=== PATIENT | male | born 1970 | race Caucasian/White ===

== ENCOUNTER → 2024-08-18 | Outpatient (CLI) | payer BC ==
--- NOTE | 2024-08-18 15:12 | US ---
EXAMINATION TYPE: US thyroid st tissue head/neck DATE OF EXAM: 08/18/2024 COMPARISON: NONE CLINICAL INDICATION: Male, 53 years old with history of E04.1 NONTOXIC SINGLE THYROID NODULE; TECHNIQUE: Grayscale and color Doppler imaging of the thyroid gland. FINDINGS: GLAND SIZE: Right Lobe: 4.7 x 1.9 x 2.1 cm Overall Parenchyma: homogeneous Left Lobe: 4.2 x 1.7 x 1.8 cm Overall Parenchyma: homogeneous Isthmus Thickness: 0.2 cm NODULES RIGHT: # of nodules measured on right: 1 1. 1.6 X 1.1 x 1.2 cm, mid, solid or almost completely solid, hypoechoic nodule, which is wider xin n tall, with smooth margins, without echogenic foci. TR 4 Prior size: no previous LEFT: # of nodules measured on left: 1 1. 1.2 X 0.8 x 0.9 cm, mid, solid or almost completely solid, isoechoic nodule, which is wider than tall, with ill-defined margins, without echogenic foci. TR 3 Prior size: no previous ISTHMUS: # of nodules measured in the isthmus: 0 Bilateral neck scanned, no evidence of lymphadenopathy. IMPRESSION: Moderately suspicious nodule right lobe thyroid. Fine needle aspiration can be performed. Highest TI-RADS level nodule reported: 2017 ACR TI-RADS LEVEL: TI-RADS 4 - Moderately Suspicious: Follow if > 1 cm, FNA if > 1.5 cm TI-RADS assessment score and recommendation for follow-up based on appropriate scoring and treatment protocols. TR3: If nodule size is ? 2.5 cm, FNA is recommended. If nodule size is ? 1.5 cm, follow-up imaging at 1, 3, and 5 years is recommended. TR4: If nodule size is ? 1.5 cm, FNA is recommended. If nodule size is ? 1.0 cm, follow-up imaging at 1, 2, 3, and 5 years is recommended. TR5: If nodule size is ? 1.0 cm, FNA is recommended. If nodule size is ? 0.5 cm, annual follow-up for up to 5 years is recommended. [email or web address] [facility], Workstation: [email or web address], 08/18/2024 3:10 PM
== END | disposition home or self-care (01) ==
LOC: RADUSWWP 14:37
PROVIDERS: ATTEND Family Medicine
DX: E04.2 Nontoxic multinodular goiter (principal)
CPT/HCPCS: 76536

== ENCOUNTER 2024-09-08 14:46 | Emergency (ER) | payer BC ==
--- NOTE | 2024-09-08 15:39 | ED ---
Abdominal Pain HPI - General Chief Complaint: Abdominal Pain Stated Complaint: ABD Pain/Vomiting Time Seen by Provider: 09/08/24 15:00 Source: patient, RN notes reviewed Mode of arrival: ambulatory Limitations: no limitations - History of Present Illness Initial Comments: This is a 54-year-old male presenting to the emergency department for complaints of abdominal pain with associated nausea and vomiting over the past 4 to 5 days. Patient states that he has attempted to take Prilosec over the past 2 weeks to alleviate symptoms of heartburn however symptoms have persisted with associated nausea and vomiting. he denies constipation, diarrhea, hematochezia, melena or urinary symptoms. Denies difficulty breathing, chest pain, peripheral edema, heart palpitations, dizziness or lightheadedness. Denies previous surgical abdominal history. - Related Data Allergies Allergy/AdvReac Type Severity Reaction Status Date / Time acetaminophen Allergy Unknown Verified 09/08/24 15:11 codeine AdvReac Unknown Verified 09/08/24 15:11 Review of Systems ROS Statement: Those systems with pertinent positive or pertinent negative responses have been documented in the HPI. ROS Other: All systems not noted in ROS Statement are negative. Past Medical History Past Medical History: Diabetes Mellitus, Hyperlipidemia, Hypertension Past Surgical History: Heart Catheterization, Heart Catheterization With Stent Smoking Status: Never smoker Past Alcohol Use History: None Reported Past Drug Use History: Marijuana General Exam - General Exam Comments Initial Comments: Visual Physical Exam Vital signs reviewed General: Well-appearing, nontoxic, no acute distress. Head: Normocephalic, atraumatic Eyes: PERRLA, EOMI ENT: Airway patent Chest: Nonlabored breathing Skin: No visual rash, normal skin tone Neuro: Alert and oriented 3 Musculoskeletal: No gross abnormalities Limitations: no limitations General appearance: alert, in no apparent distress Respiratory exam: Present: normal lung sounds bilaterally. Absent: respiratory distress, wheezes, rales, rhonchi, stridor Cardiovascular Exam: Present: regular rate, normal rhythm, normal heart sounds. Absent: systolic murmur, diastolic murmur, rubs, gallop, clicks GI/Abdominal exam: Present: soft, tenderness (RUQ, epigastric), normal bowel sounds. Absent: distended, guarding, rebound, rigid Extremities exam: Present: normal inspection, full ROM, normal capillary refill. Absent: tenderness, pedal edema, joint swelling, calf tenderness Back exam: Present: normal inspection. Absent: CVA tenderness (R), CVA tenderness (L) Skin exam: Present: warm, dry, intact, normal color. Absent: rash Course Vital Signs 09/08/24 15:08 Temperature 98.1 F Pulse Rate 86 Respiratory 18 Rate Blood Pressure 119/77 O2 Sat by Pulse 99 Oximetry Medical Decision Making - Medical Decision Making Was pt. sent in by a medical professional or institution (, PA, GEOSPATIAL ENGINEER, urgent c are, hospital, or correction...) When possible be specific @ -No Did you speak to anyone other than the patient for history (EMS, parent, family, police, friend...)? What history was obtained from this source @ -No Did you review nursing and triage notes (agree or disagree)? Why? @ -I reviewed and agree with nursing and triage notes Were old charts reviewed (outside hosp., previous admission, EMS record, old EKG, old radiological studies, urgent care reports/EKG's, correction records)? Report findings @ -No old charts were reviewed Differential Diagnosis (chest pain, altered mental status, abdominal pain women, abdominal pain men, vaginal bleeding, weakness, fever, dyspnea, syncope, h eadache, dizziness, GI bleed, back pain, seizure, CVA, palpatations, mental health, musculoskeletal)? @ -Differential Abdominal Pain Men: Appendicitis, cholecystitis, diverticulosis, ischemic bowel, pancreatitis, hepatitis, UTI, gastroenteritis, AAA, incarcerated hernia, bowel obstruction, constipation, inflammatory bowel, hepatitis, peptic ulcer disease, splenic infarction, perforated viscus, testicular torsion, this is not meant to be an all-inclusive list EKG interpreted by me (3pts min.). @ -None X-rays interpreted by me (1pt min.). @ -None done CT interpreted by me (1pt min.). @ -CT of the abdomen pelvis with IV contrast reveals choledocholithiasis with upstream dilation of the extrahepatic and central intrahepatic biliary system with recommended ERCP U/S interpreted by me (1pt. min.). @ -Ultrasound of the gallbladder reveals a dilated common bile duct with inability to visualize stone visualized on CT scan due to overlying bowel gas What testing was considered but not performed or refused? (CT, X-rays, U/S, labs)? Why? @ -None What meds were considered but not given or refused? Why? @ -None Did you discuss the management of the patient with other professionals (professionals i.e. DrElijah, PA, GEOSPATIAL ENGINEER, lab, RT, psych nurse, social worker clinical, informatics educator, teacher, chief risk officer, catalytic case operator)? Give summary @ -i spoke with GI specialist, Dr. Moreno, with [facility], who has agreed to transfer the patient for gallstone pancreatitis intervention. Was smoking cessation discussed for >3mins.? @ -No Was critical care preformed (if so, how long)? @ -No Were there social determinants of health that impacted care today? How? (Homelessness, low income, unemployed, alcoholism, drug addiction, transportation, low edu. Level, literacy, decrease access to med. care, nursing home, rehab)? @ -No Was there de-escalation of care discussed even if they declined (Discuss DNR or withdrawal of care, Hospice)? DNR status @ -No What co-morbidities impacted this encounter? (DM, HTN, Smoking, COPD, CAD, Cancer, CVA, ARF, Chemo, Hep., AIDS, mental health diagnosis, sleep apnea, morbid obesity)? @ -None Was patient admitted / discharged? Hospital course, mention meds given and route, prescriptions, significant lab abnormalities, going to OR and other pertinent info. @ -Transferred. 54-year-old male presenting to emergency department for epigastric abdominal pain over the past 4 to 5 days. Initial vitals are stable. Pain is reproducible on palpation with no signs of guarding or rebound tenderness. He is provided with dose of Dilaudid for pain control. Labs remarkable for leukocytosis of 15.3 with left shift neutrophils at 13.7. CMP concerning for transaminitis (AST 343, ALT 576, and alk phos of 234), hyperbilirubinemia of 8.6 and elevated amylase of [address] lipase of [address]87. CT imaging of the abdomen pelvis with IV contrast reveals choledocholithiasis with upstream dilation of the extrahepatic and central intrahepatic biliary system. [facility] will be transferred to [facility] (Dr. Moreno) as there is no GI service coverage. He is started on pip-tazo. Case discussed with my attending Dr. Degroot Undiagnosed new problem with uncertain prognosis? @ -No Drug Therapy requiring intensive monitoring for toxicity (Heparin, Nitro, Insulin, Cardizem)? @ -No Were any procedures done? @ -No Diagnosis/symptom? @ -Choledocholithiasis Acute, or Chronic, or Acute on Chronic? @ -Acute Uncomplicated (without systemic symptoms) or Complicated (systemic symptoms)? @ -Complicated Side effects of treatment? @ -No Exacerbation, Progression, or Severe Exacerbation? @ -No Poses a threat to life or bodily function? How? (Chest pain, [place], [place], pneumonia, PE, COPD, DKA, ARF, appy, cholecystitis, CVA, Diverticulitis, Homicidal, S uicidal, threat to staff... and all critical care pts) @ -No - Lab Data Result diagrams: 09/08/24 15:26 09/08/24 15:26 Lab Results 09/08/24 09/08/24 09/08/24 Range/Units 15:26 15:26 15:26 WBC 15.39 H (4.50-10.00) 10*3/uL RBC 5.13 (4.40-5.60) 10*6/uL Hgb 16.9 (13.0-17.0) g/dL Hct 45.1 (39.6-50.0) % MCV 87.9 (80.0-97.0) fL MCH 32.9 H (27.0-32.0) pg MCHC 37.5 H (32.0-37.0) g/dL Plt Count 232 (140-440) 10*3/uL MPV 9.7 (9.5-12.2) fL Immature Gran % (Auto) 0.3 % Neutrophils % 89.1 % Lymphocytes % 4.4 % Monocytes % 6.0 % Eosinophils % 0.1 % Basophils % 0.1 % Immature Gran # 0.05 H (0.00-0.04) 10*3/uL Neutrophils # 13.70 H (1.80-7.70) 10*3/uL Lymphocytes # 0.68 L (0.90-5.00) 10*3/uL Monocytes # 0.93 (0.20-1.00) 10*3/uL Eosinophils # 0.01 L (0.04-0.35) 10*3/uL Basophils # 0.02 (0.00-0.10) 10*3/uL Sodium 134 L (137-145) mmol/L Potassium 4.2 (3.5-5.1) mmol/L Chloride 99 (98-107) mmol/L Carbon Dioxide 22 (22-30) mmol/L Anion Gap 13 mmol/L BUN 14 (9-20) mg/dL Creatinine 0.86 (0.66-1.25) mg/dL Est GFR (CKD-EPI)AfAm >90 (>60 ml/min/1.73 sqM) Est GFR (CKD-EPI)NonAf >90 (>60 ml/min/1.73 sqM) Glucose 315 H (74-99) mg/dL Calcium 9.6 (8.4-10.2) mg/dL Magnesium 1.5 L (1.6-2.3) mg/dL Total Bilirubin 8.6 H (0.2-1.3) mg/dL AST 343 H (17-59) U/L ALT 576 H (4-49) U/L Alkaline Phosphatase 234 H (38-126) U/L Total Protein 7.5 (6.3-8.2) g/dL Albumin 4.5 (3.5-5.0) g/dL Amylase 1080 H* (30-110) U/L Lipase 9987 H (23-300) U/L Urine Color Urine Appearance (Clear) Urine pH (5.0-8.0) Ur Specific [place] (1.001-1.035) Urine Protein (Negative) Urine Glucose (UA) (Negative) Urine Ketones (Negative) Urine Blood (Negative) Urine Nitrite (Negative) Urine Bilirubin (Negative) Urine Urobilinogen (<2.0) mg/dL Ur Leukocyte Esterase (Negative) Urine RBC (0-5) /hpf Urine WBC (0-5) /hpf Ur Squamous Epith Cells (0-4) /hpf Urine Mucus (None) /hpf 09/08/24 Range/Units 19:13 WBC (4.50-10.00) 10*3/uL RBC (4.40-5.60) 10*6/uL Hgb (13.0-17.0) g/dL Hct (39.6-50.0) % MCV (80.0-97.0) fL MCH (27.0-32.0) pg MCHC (32.0-37.0) g/dL Plt Count (140-440) 10*3/uL MPV (9.5-12.2) fL Immature Gran % (Auto) % Neutrophils % % Lymphocytes % % Monocytes % % Eosinophils % % Basophils % % Immature Gran # (0.00-0.04) 10*3/uL Neutrophils # (1.80-7.70) 10*3/uL Lymphocytes # (0.90-5.00) 10*3/uL Monocytes # (0.20-1.00) 10*3/uL Eosinophils # (0.04-0.35) 10*3/uL Basophils # (0.00-0.10) 10*3/uL Sodium (137-145) mmol/L Potassium (3.5-5.1) mmol/L Chloride (98-107) mmol/L Carbon Dioxide (22-30) mmol/L Anion Gap mmol/L BUN (9-20) mg/dL Creatinine (0.66-1.25) mg/dL Est GFR (CKD-EPI)AfAm (>60 ml/min/1.73 sqM) Est GFR (CKD-EPI)NonAf (>60 ml/min/1.73 sqM) Glucose (74-99) mg/dL Calcium (8.4-10.2) mg/dL Magnesium (1.6-2.3) mg/dL Total Bilirubin (0.2-1.3) mg/dL AST (17-59) U/L ALT (4-49) U/L Alkaline Phosphatase (38-126) U/L Total Protein (6.3-8.2) g/dL Albumin (3.5-5.0) g/dL Amylase (30-110) U/L Lipase (23-300) U/L Urine Color Dark Brown Urine Appearance Clear (Clear) Urine pH 6.5 (5.0-8.0) Ur Specific [place] >1.050 H (1.001-1.035) Urine Protein 1+ H (Negative) Urine Glucose (UA) 4+ H (Negative) Urine Ketones 1+ H (Negative) Urine Blood Negative (Negative) Urine Nitrite Negative (Negative) Urine Bilirubin 2+ H (Negative) Urine Urobilinogen 6.0 (<2.0) mg/dL Ur Leukocyte Esterase Negative (Negative) Urine RBC 6 H (0-5) /hpf Urine WBC 8 H (0-5) /hpf Ur Squamous Epith Cells <1 (0-4) /hpf Urine Mucus Rare H (None) /hpf Disposition Clinical Impression: Choledocholithiasis Disposition: OTHER INSTITUTION NOT DEFINED Condition: Serious Referrals: Payal Diamond MD [Primary Care Provider] - 1-2 days - Out of Hospital Transfer - Req. Specs Out of Hospital Transfer - Requested Specifics: Other Emergency Center ([facility])
[2024-09-08 15:47] LABS: ALT 576 U/L (4-49); AST 343 U/L (17-59); African American GFR (CKD) >90 (>60 ml/min/1.73 sqM); Albumin 4.5 g/dL (3.5-5.0); Alkaline Phosphatase 234 U/L (38-126); Anion Gap 13 mmol/L; Blood Urea Nitrogen 14 mg/dL (9-20); Calcium 9.6 mg/dL (8.4-10.2); Carbon Dioxide 22 mmol/L (22-30); Chloride 99 mmol/L (98-107); Glucose 315 mg/dL (74-99); Non-African American GFR(CKD) >90 (>60 ml/min/1.73 sqM); Potassium 4.2 mmol/L (3.5-5.1); Sodium 134 mmol/L (137-145); Total Bilirubin 8.6 mg/dL (0.2-1.3); Total Protein 7.5 g/dL (6.3-8.2)
[2024-09-08 16:04] LABS: Amylase 1080 U/L (30-110)
[2024-09-08 16:12] LABS: Basophils # (A) 0.02 10*3/uL (0.00-0.10); Basophils % (A) 0.1 %; Eosinophils # (A) 0.01 10*3/uL (0.04-0.35); Eosinophils % (A) 0.1 %; HCT 45.1 % (39.6-50.0); HGB 16.9 g/dL (13.0-17.0); Lymphocytes # (A) 0.68 10*3/uL (0.90-5.00); Lymphocytes % (A) 4.4 %; MCH 32.9 pg (27.0-32.0); MCHC 37.5 g/dL (32.0-37.0); MCV 87.9 fL (80.0-97.0); Mean Platelet Volume 9.7 fL (9.5-12.2); Monocytes # (A) 0.93 10*3/uL (0.20-1.00); Neutrophils % (A) 89.1 %; Platelet Count 232 10*3/uL (140-440); RBC 5.13 10*6/uL (4.40-5.60); RDW 11.8 % (11.5-14.5); WBC 15.39 10*3/uL (4.50-10.00)
[2024-09-08 16:23] LABS: Lipase 9987 U/L (23-300)
[2024-09-08] MEDS: HYDROmorphone 2 MG/ML 1 ML SYRINGE IVP STA (18:07)
--- NOTE | 2024-09-08 18:14 | CT ---
EXAMINATION TYPE: CT abdomen pelvis w con DATE OF EXAM: 09/08/2024 5:52 PM COMPARISON: None CLINICAL INDICATION: Male, 54 years old with history of ab pain, transaminitis, pain; abdominal pain x 5 days TECHNIQUE: Axial CT abdomen pelvis w con;Sagittal and coronal reformats were created on a separate w orkstation. Contrast used:100ml mL of Isovue 300 with IV Contrast, (none if empty) Oral contrast used: without Oral Contrast (none if empty) CT DLP: 1053.3 mGycm, Automated exposure control for dose reduction was used. FINDINGS: LOWER CHEST: Unremarkable ABDOMEN LIVER: Unremarkable GALLBLADDER AND BILE DUCTS: There is dilation of the extrahepatic and central intrahepatic biliary sy stem with obstructing choledocholithiasis identified series 201 image 32. PANCREAS: Unremarkable. SPLEEN: Unremarkable. ADRENAL GLANDS: Unremarkable. KIDNEYS AND URETERS: No evidence of hydronephrosis or obstructing renal calculus. The ureters are unr emarkable. PELVIS BLADDER: No evidence for wall thickening or mass given limitations of exam. REPRODUCTIVE: Unremarkable. ABDOMEN & PELVIS STOMACH AND BOWEL: No evidence of bowel obstruction. The appendix is normal.r PERITONEUM/RETROPERITONEUM: No evidence of pneumoperitoneum or free fluid. VASCULATURE: No evidence of aortic aneurysm. MUSCULOSKELETAL: No acute osseous abnormalities LYMPH NODES: No gross evidence for lymphadenopathy. SOFT TISSUE/ABDOMINAL WALL: Bilateral fat-containing inguinal hernias. IMPRESSION: Choledocholithiasis with upstream dilation of the extra hepatic and central intrahepatic biliary syst em. The ERCP recommended. [facility], , 09/08/2024 6:12 PM
--- NOTE | 2024-09-08 19:18 | US ---
EXAMINATION TYPE: US gallbladder DATE OF EXAM: 09/08/2024 COMPARISON: CT same day CLINICAL INDICATION: Male, 54 years old with history of epigastric pain, transaminitis; epigastric pa in 5 days. N/V. Choledocholithiasis as seen on CT TECHNIQUE: Grayscale and color Doppler imaging of the right upper quadrant was performed. FINDINGS: EXAM MEASUREMENTS: Liver Length: 15.6 cm Gallbladder Wall: 0.2 cm CBD: 1.3 cm Right Kidney: 11.4 x 5.5 x 5.5 cm SAFETY RELIEF VALVE TECHNICIAN NOTES:limited due to overlying bowel gas Pancreas: obscured by overlying bowel gas Liver: increased echogenicity , no masses or dilated ducts. Gallbladder: prominent in length (11.0cm) Evidence for sonographic Watson's sign: no CBD: dilated, unable to visualize stone visualized on CT due to gas Right Kidney: wnl IMPRESSION: Choledocholithiasis seen on same day CT not appreciated on ultrasound, ERCP recommended. [facility], , 09/08/2024 7:16 PM
[2024-09-08 19:46] LABS: Appearance,Urine Clear (Clear); Bilirubin,Urine 2+ (Negative); Blood,Urine Negative (Negative); Color,Urine Dark Brown; Glucose,Urine (UA) 4+ (Negative); Ketones,Urine 1+ (Negative); Leukocyte Esterase,Urine Negative (Negative); Mucus,Urine Rare /hpf; Nitrite,Urine Negative (Negative); PH, Urine 6.5 (5.0-8.0); Protein,Urine 1+ (Negative); RBC,Urine 6 /hpf (0-5); Squamous Epithelial Cell,Urine <1 /hpf (0-4); WBC,Urine 8 /hpf (0-5)
[2024-09-08 19:49] LABS: Specific Gravity,Urine >1.050 (1.001-1.035)
[2024-09-08] MEDS: PIPERACILLIN-TAZOBACTAM 3.375 GM in SODIUM CHLORIDE 0.9% 100 ML IVPB STA (20:03)
[2024-09-08 20:55] VITALS: BP 148/72; PULSE 84; RESP 17; TEMP 98.5
== END 2024-09-08 20:50 | disposition other institution (70) ==
LOC: EC 14:46
DX: K80.50 Calculus of bile duct without cholangitis or cholecystitis without obstruction (principal); D72.829 Elevated white blood cell count, unspecified; R74.8 Abnormal levels of other serum enzymes; Z88.5 Allergy status to narcotic agent; Z88.8 Allergy status to other drugs, medicaments and biological substances
CPT/HCPCS: 36415; 80053; 82150; 83690; 83735; 85025; 81001; 76705; 74177; 99285; 96365; 96375; J2543; J1171; Q9967